=== PATIENT | female | born 1975 | race Caucasian/White ===

== ENCOUNTER → 2019-01-09 14:29 | Outpatient (CLI) | payer OTHER, SELFPAY ==
[2019-01-09 15:44] LABS: EXAGEN MAILED SPECIMEN
[2019-01-09 17:42] LABS: Absolute Neutrophil Count 4.2 X10^3/uL (2.0-7.7); Basophil# 0.04 X10^3/uL; Basophil% 0.5 % (0-1); Color, Urine Yellow (Yellow); Eosinophil# 0.12 X10^3/uL; Eosinophils% 1.6 % (0-5); Glucose, Dipstick Normal (Normal); Hematocrit 39.7 % (37-47); Hemoglobin 12.4 g/dl (12.0-15.0); Ketone-Dipstick Negative (Negative); Leukocyte Esterase-Dipstick 500 /ul (Negative); Lymphocyte % 35.9 % (19-41); Mean Corp Hgb Conc 31.2 g/gl (32-36); Mean Corpuscular Hgb 27.5 pg (27.0-32.0); Mean Platelet Vol. 10.6 fl (6.2-12.0); Monocyte# 0.46 X10^3/uL; Monocyte% 6.1 % (0-10); Neutrophil # 4.18 X10^3/uL (2.7-7.7); Neutrophil % 55.6 % (47-70); Nitrite-Dipstick Negative (Negative); Occult Blood-Urine 25 /ul (Negative); Platelet Count 359 K/mm3 (150-450); Protein-Dipstick Negative (Negative); RBC Distribution Width CV 13.8 % (11.6-14.6); RBC Distribution Width SD 44.6 fl (35.1-43.9); Red Blood Count 4.51 M/mm3 (4.2-5.4); Specific Gravity, Urine 1.015 (1.002-1.030); Urine Bilirubin Dipstick Negative (Negative); Urine Clarity Sl. Cloudy (Clear); Urine Urobilinogen Normal (Normal); White Blood Count 7.5 K/mm3 (4.4-11.0)
[2019-01-09 17:43] LABS: POSITIVE COUNT NO; POSITIVE DIFFERENTIAL NO; POSITIVE MORPHOLOGY NO
[2019-01-09 17:48] LABS: Protein, Urine (Random) 12.3 mg/dL (<11.9); Protein:Creat Ratio 125 mg/g CRE (0-200)
[2019-01-09 17:51] LABS: Erythrocyte Sedimentation Rate 25 mm/hr (0-20)
[2019-01-09 18:03] LABS: AST(SGOT) 12 U/L (15-37); Alanine Aminotransfer ALT/SGPT 27 U/L (13-56); Albumin, Serum 3.8 g/dL (3.2-5.0); Alkaline Phosphatase 67 U/L (45-117); Anion Gap 11 (5-15); BUN 8 mg/dL (7-18); CRP 6.88 mg/L (0.0-3.0); Calcium,Total 8.8 mg/dL (8.5-10.1); Chloride 107 mmol/L (98-107); Creatinine, Serum 0.73 mg/dL (0.55-1.02); EST Glomerular Filtration Rate 94 mL/min (>60); Est Glom Filt Rate - Afr Amer 113 mL/min (>60); Globulin 3.9 g/dL (2.2-4.2); Glucose 97 mg/dL (74-106); Potassium 3.7 mmol/L (3.5-5.1); Protein, Total 7.7 g/dL (6.4-8.2); Sodium Level 141 mmol/L (136-145)
[2019-01-13 18:34] LABS: HEPATITIS B SURFACE AG Negative (Negative)
[2019-01-13 18:35] LABS: HLA B27 Negative (.); Hep B Surface Antibodies Reactive (.); Hep C Antibodies <0.1 s/co ratio (0.0-0.9)
== END ==
PROVIDERS: Referring Provider Internal Medicine Rheumatology; Visit Provider Internal Medicine Rheumatology
DX: M06.4 Inflammatory polyarthropathy (principal); L93.0 Discoid lupus erythematosus; M79.7 Fibromyalgia
CPT/HCPCS: 36415; 80053; 81002; 81374; 82570; 84156; 85025; 85652; 86140; 86706; 86803; 87340